=== PATIENT | male | born 1970 | race Caucasian/White ===

== ENCOUNTER 2022-04-05 08:50 | Outpatient (CLI) | payer BC, SELFPAY ==
[2022-04-05 12:53] LABS: Chloride* 100 mmol/L (96-114); Sodium* 137 mmol/L (135-149)
[2022-04-05 12:55] LABS: Estimated Glomerular Filt Rate 91 ml/min
[2022-04-05 12:56] LABS: Blood Urea Nitrogen* 17 mg/dL (7-30); Calcium* 9.1 mg/dL (8.4-10.6); Carbon Dioxide* 26 mmol/L (20-32)
[2022-04-05 13:18] LABS: Glucose* 392 mg/dL (60-115)
== END 2022-04-05 08:51 | disposition home or self-care (01) ==
LOC: NFLDREF 08:51
PROVIDERS: Visit Provider Family Medicine
DX: I10 Essential (primary) hypertension (principal)
CPT/HCPCS: 80048

== ENCOUNTER 2022-04-09 08:58 | Emergency (ER) | payer BC, SELFPAY ==
[2022-04-09 09:04] VITALS: BP 185/108; RESP 18; TEMP 36; O2SAT 98
[2022-04-09 09:25] LABS: Appearance Urine Clear (Clear); Bilirubin Urine Negative (Negative); Blood Urine 3+ (Negative); Color Urine Yellow (Yellow); Glucose Urine Negative (Negative); Ketones Urine Negative (Negative); Leukocyte Esterase Urine Negative (Negative); Nitrite Urine Negative (Negative); Protein Urine Negative (Negative); Urobilinogen Urine 0.2 (0.2-1.0); pH Urine 6.5 (5.0-8.5)
[2022-04-09 09:55] LABS: WBC Urine 0-2 (0-5)
[2022-04-09 10:28] VITALS: BP 177/120; RESP 20; O2SAT 95
--- NOTE | 2022-04-09 13:11 | ED.GENADULT ---
HPI - General Adult General Date Seen: 04/09/22 Chief complaint: Urogenital Problems, Male Stated complaint: Blood clots in urine/more than 1 wk Time Seen by Provider: 04/09/22 09:24 Source: patient Mode of arrival: ambulatory Limitations: no limitations History of Present Illness HPI narrative: Patient is a 51-year-old who presents with painless hematuria for a week. He also notes that he was in to see his primary doctor for high blood pressure last week and his blood sugar was elevated in the 400s. He says his primary doctor said that he should come back in a week to recheck it as maybe it was just lab error. He says he has been otherwise feeling fine. He denies any recent unexpected weight loss, night sweats, fevers. He has not had any abdominal or back pain. He notes some clots when he starts his urine stream, has not had any difficulty voiding otherwise. Denies dysuria, frequency or urgency. Denies any history of kidney stones. No prostate problems that he knows of. He says he went to urgent care yesterday but was told he needed to come to the ER. Related Data Previous Rx's Medication Instructions Recorded amlodipine 10 mg tablet 10 mg PO DAILY #90 tabs 04/05/22 lisinopril 20 mg tablet 20 mg PO DAILY #90 tabs 04/05/22 Allergies Allergy/AdvReac Type Severity Reaction Status Date / Time No Known Allergies Allergy Unknown Unknown Verified 04/05/22 07:59 Review of Systems Status of ROS: Reports: 10 or more systems reviewed and unremarkable except as noted in History and below [facility] Medical History History of anxiety History of depression History of malignant melanoma Social History Smoking Status: Never smoker Do you use any of these nicotine containing products: None Second hand tobacco smoke exposure: No How often do you have a drink containing alcohol: monthly or less How many standard drinks containing alcohol do you have on a typical day: 1 or 2 How often do you have six or more drinks on one occasion: Never AUDIT-C Alcohol total score: 1 Non-prescribed substance use: denies use Little interest or pleasure in doing things: several days Feeling down, depressed, or hopeless: several days Exam Narrative: Exam Narrative: Vital signs as noted above. In general, an alert, well-appearing patient. Head: Normocephalic, atraumatic. Eyes: Pupils are equal reactive. Extraocular movements are full. Conjunctivae are normal. ENT: Mucous membranes are moist. Throat is normal. Neck: Supple without lymphadenopathy. Heart: Regular rate and rhythm. No murmur or rub. Lungs: Clear bilaterally. No increased work of breathing, crackles or wheezes. Abdomen: Soft and nontender. No organomegaly. Back no CVA tenderness. Extremities: Well perfused. No edema. No calf tenderness. Pulses intact. Neurologic: Patient is alert and oriented to person and place. Speech is fluent. Face is symmetric. Moves all extremities equally. Affect: Normal. Skin: Warm and dry. Well perfused. Const: Vital Signs, click to edit/add: Vital Signs - 24 hr 04/09/22 09:04 04/09/22 10:28 Temperature 96.8 F L Respiratory Rate 18 20 Blood Pressure [Le ft Upper Arm] 185/108 H 177/120 H Pulse Oximetry 98 95 Oxygen Delivery Me thod Room Air Documenting provider has reviewed patient's vital signs: yes Course Course Hospital Course: We checked a urinalysis here, which is side from 10-25 red cells is negative. He does not have any glucose in his urine. 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 Therefore, I did do a fasting glucose here which is 182. I have discussed this with him, I do think this is diagnostic of diabetes which is likely type 2. He remains hypertensive here. He just started on lisinopril and amlodipine a few days ago. Since he had previously already discussed the possible diagnosis of diabetes with his primary doctor, I have suggested that he call his clinic today and see with a plan to start him on for his diabetes rather than me choosing a medicine here. I have stressed to him that I do think he needs to be on medication for diabetes right away. His blood pressure will also need to be followed, but given he just started medication for that I think that can be followed up with primary care. With respect to his hematuria, I have discussed with him that I would rather have a follow-up with Urology and have that worked up. While we could do imaging in the form of CT scan, I am not certain that that would be the 1st test that Urology would choose, and rather than expose him to Radiology which he may or may not need I would recommend that we have him see Urology 1st. He is comfortable with that. I gave him the phone numbers that he can call make a follow-up appointment with them. Stressed that he does need to follow up with them, even if hematuria were to resolve. If at any time he develops severe hematuria, inability to void, severe abdominal or back pain, return to the emergency department for re-evaluation. Vital Signs Vital signs: Initial Vital Signs Temperature 96.8 F L 04/09/22 09:04 Temperature Source Temporal Artery Scan 04/09/22 09:04 Respiratory Rate 18 04/09/22 09:04 Blood Pressure 185/108 H 04/09/22 09:04 Blood Pressure Mean 133 04/09/22 09:04 Blood Pressure Position Sitting 04/09/22 09:04 Pulse Oximetry 98 04/09/22 09:04 Oxygen Delivery Method 04/09/22 09:04 Vital Signs Temperature 96.8 F L 04/09/22 09:04 Respiratory Rate 18 04/09/22 09:04 Blood Pressure 185/108 H 04/09/22 09:04 Pulse Oximetry 98 04/09/22 09:04 Oxygen Delivery Method 04/09/22 09:04 Temperature 96.8 F L 04/09/22 09:04 Respiratory Rate 20 04/09/22 10:28 Blood Pressure 177/120 H 04/09/22 10:28 Pulse Oximetry 95 04/09/22 10:28 Oxygen Delivery Method 04/09/22 09:04 Medical Decision Making Lab Data Labs: Lab Results 04/09/22 Range/Units 09:00 Urine Color Yellow (Yellow) Urine Appearance Clear (Clear) Urine pH 6.5 (5.0-8.5) Ur Specific [place] 1.010 (1.000-1.030) Urine Protein Negative (Negative) Urine Glucose (UA) Negative (Negative) Urine Ketones Negative (Negative) Urine Blood 3+ A (Negative) Urine Nitrite Negative (Negative) Urine Bilirubin Negative (Negative) Urine Urobilinogen 0.2 (0.2-1.0) Ur Leukocyte Esterase Negative (Negative) Urine RBC 10-25 A (0-2) Urine WBC 0-2 (0-5) Ur Squamous Epith Cells None (None-Few) Urine Bacteria None (None) Discharge Plan Discharge Clinical Impression: Diabetes, Painless hematuria Patient Disposition: Home, Self-Care Condition: Stable Instructions: Type 2 Diabetes in Adults: New Diagnosis (DC), Hematuria (ED) Additional Instructions: Your fasting blood sugar today is 182, above the threshold for diabetes. Since you have already begun this discussion with your primary doctor, I would recommend that you call your clinic today, to ask of medication they would like to start, and to arrange follow-up. With regard to the blood in your urine, I would like to have you follow-up with Urology to look into that further. Please call [facility] at [phone] to arrange a follow-up appointment. If any time you have significant blood in the urine, pain with urination, inability to urinate, severe abdominal or back pain, return to the emergency department. Prescriptions: No Action amlodipine 10 mg tablet 10 mg PO DAILY Qty: 90 1RF lisinopril 20 mg tablet 20 mg PO DAILY Qty: 90 1RF Follow Up/Referrals: Bryce Ashley MD [Primary Care Provider] - Stand Alone Forms: [employer] Info Instructions
== END 2022-04-09 10:34 | disposition home or self-care (01) ==
PROVIDERS: Emergency Provider Emergency Medicine; PCP Family Medicine
DX: R31.9 Hematuria, unspecified (principal); E11.9 Type 2 diabetes mellitus without complications
CPT/HCPCS: 81001; 81015; 82962; 87086; 99283; 99284

== ENCOUNTER 2022-09-10 07:30 | Outpatient (CLI) | payer BC, SELFPAY | END 2022-09-10 07:31 | disposition home or self-care (01) | LOC: NFLDREF 12:16 | PROVIDERS: PCP Family Medicine; Referring Provider Family Medicine; Visit Provider Family Medicine | DX: Z00.00 Encounter for general adult medical examination without abnormal findings (principal); E78.5 Hyperlipidemia, unspecified; I10 Essential (primary) hypertension; E66.3 Overweight; R79.89 Other specified abnormal findings of blood chemistry; E11.9 Type 2 diabetes mellitus without complications | CPT/HCPCS: 80053; 80061 ==

== ENCOUNTER 2022-10-15 07:56 | Outpatient (CLI) | payer BC, SELFPAY ==
--- NOTE | 2022-10-15 07:24 | P.ANHP_ITS ---
HPI - Pre-Anesthesia History of Present Illness Time Seen by Provider: 08:20 Date Seen: 10/15/22 Date of service: 10/15/22 Reason for visit: screening colonoscopy Source: patient and old records reviewed Narrative HPI: here for screening colonoscopy Review of Systems Status of ROS Reports: 6 or more systems reviewed and unremarkable except as noted in History and below [facility] Medical History History of anxiety History of depression History of malignant melanoma Social History (Updated 09/12/22 @ 11:15 by Carlota Melissa ~ [facility]) What is your current living situation?: I presently have a place to live Problems where you live: no known problems In the past 12 months, utilities in danger of being shut off: no In the past 12 mos, have been you worried that your food would run out before you had money to buy more?: never true In the past 12 mos, the food you bought just didn't last and you didn't have money to buy more?: never true Smoking Status: Never smoker Do you use any of these nicotine containing products: None Second hand tobacco smoke exposure: No How often do you have a drink containing alcohol: monthly or less How many standard drinks containing alcohol do you have on a typical day: 1 or 2 How often do you have six or more drinks on one occasion: Never AUDIT-C Alcohol total score: 1 Non-prescribed substance use: denies use How often does anyone, including family, friends and others, physically hurt you : How often does anyone, including family, friends and others, insult or talk down to you: How often does anyone, including family, friends and others, threaten you with harm: How often does anyone, including family, friends and others, scream or curse at you: Little interest or pleasure in doing things: not at all Feeling down, depressed, or hopeless: not at all Meds Home Medications and Allergies Allergies Allergy/AdvReac Type Severity Reaction Status Date / Time No Known Allergies Allergy Unknown Unknown Verified 10/10/22 10:13 Exam Const Documenting provider has reviewed patient's vital signs: yes Common normals: no apparent distress, oriented x3, healthy appearing, alert and well nourished General appearance: cooperative and comfortable Orientation/consciousness: Yes awake HENMT Common normals: normocephalic Head and scalp: normocephalic Neck & C-Spine Common normals: full ROM Chest Chest: symmetrical chest wall rise Resp Common normals: normal respiratory effort, no retractions, no use of accessory muscles and clear to auscultation bilaterally Auscultation: clear to auscultation bilaterally Cardio Common normals: regular rate, regular rhythm, S1 normal heart sound, S2 normal heart sound and no murmurs Rate: regular rate Rhythm: regular rhythm Heart sounds: S1 normal and S2 normal Neuro Common normals: oriented x3 Sensorium/orientation: awake and alert Assessment and Plan Assessment and plan (1) Screen for colon cancer: Status: Acute Plan ok to proceed with sedation
--- NOTE | 2022-10-15 07:24 | W.ANESCHARGE ---
Anesthesia Charges Start Date/Time Anesthesia Start Date: 10/15/22 Anesthesia Start Time: 09:06 Stop Date/Time Anesthesia Stop Date: 10/15/22 Anesthesia Stop Time: 10:05
--- NOTE | 2022-10-15 10:06 | W.ANESCHARGE ---
Anesthesia Charges Start Date/Time Anesthesia Start Date: 10/15/22 Anesthesia Start Time: 09:06 Stop Date/Time Anesthesia Stop Date: 10/15/22 Anesthesia Stop Time: 10:05
== END 2022-10-15 07:57 | disposition home or self-care (01) ==
PROVIDERS: PCP Family Medicine; Visit Provider Surgery
DX: Z12.11 Encounter for screening for malignant neoplasm of colon (principal); K63.5 Polyp of colon; K62.1 Rectal polyp
CPT/HCPCS: 45385; 811; 88305; J2704

== ENCOUNTER 2022-10-19 08:54 | Emergency (ER) | payer OTHER, BC, SELFPAY ==
[2022-10-19 09:05] VITALS: BP 131/89; PULSE 93; RESP 16; TEMP 35.7; O2SAT 96; BMI 30.5
--- NOTE | 2022-10-19 09:47 | ED.GENADULT ---
HPI - General Adult General Chief complaint: Extremity Pain/Injury, Upper Stated complaint: L arm injury Time Seen by Provider: 10/19/22 09:36 Source: patient Mode of arrival: ambulatory Limitations: no limitations History of Present Illness HPI narrative: 52-year-old male coming in today with arm pain. He states he was lifting up a stage when he fell couple of pops right in his anterior elbow area and felt immediate pain. He has been having pain in the antecubital fossa since and has a hard time flexing the arm. He denies any other injury. Related Data Previous Rx's Medication Instructions Recorded amlodipine 10 mg tablet 10 mg PO DAILY #90 tabs 09/12/22 lisinopril 40 mg tablet 40 mg PO QDAY #90 tabs 09/12/22 peg 3350-electrolytes 236 240 ml PO Q10M #4,000 mL 09/12/22 gram-22.74 gram-6.74 gram-5.86 gram solution (Golytely) rosuvastatin 10 mg tablet 10 mg PO QDAY #90 tabs 09/12/22 Blood Glucose Meter #1 ea 10/10/22 Diabetic Test Strips #100 ea 10/10/22 chlorthalidone 25 mg tablet 12.5 mg (1/2 x 25 mg) PO QDAY #45 10/10/22 tabs lancets 28 gauge (CareTouch Safety #100 ea 10/10/22 Lancets) metformin 500 mg tablet 500 mg PO BIDWMEAL #60 tabs 10/10/22 Allergies Allergy/AdvReac Type Severity Reaction Status Date / Time No Known Allergies Allergy Unknown Unknown Verified 10/10/22 10:13 Review of Systems Status of ROS: Reports: 6 or more systems reviewed and unremarkable except as noted in History and below [facility] Medical History History of malignant melanoma ?Z85.820 - Personal history of malignant melanoma of skin (ICD-10) History of depression ?Z86.59 - Personal history of other mental and behavioral disorders (ICD-10) History of anxiety ?Z86.59 - Personal history of other mental and behavioral disorders (ICD-10) Social History What is your current living situation?: I presently have a place to live Problems where you live: no known problems In the past 12 months, utilities in danger of being shut off: no In the past 12 mos, have been you worried that your food would run out before you had money to buy more?: never true In the past 12 mos, the food you bought just didn't last and you didn't have money to buy more?: never true Smoking Status: Never smoker Do you use any of these nicotine containing products: None Second hand tobacco smoke exposure: No How often do you have a drink containing alcohol: monthly or less How many standard drinks containing alcohol do you have on a typical day: 1 or 2 How often do you have six or more drinks on one occasion: Never AUDIT-C Alcohol total score: 1 Non-prescribed substance use: denies use How often does anyone, including family, friends and others, physically hurt you: How often does anyone, including family, friends and others, insult or talk down to you: How often does anyone, including family, friends and others, threaten you with harm: How often does anyone, including family, friends and others, scream or curse at you: Little interest or pleasure in doing things: not at all Feeling down, depressed, or hopeless: not at all Exam Narrative: Exam Narrative: Overweight, well-developed patient in no acute distress. Alert and oriented. Answers questions appropriately. Mood and affect are appropriate. Thoughts are goal oriented and rational. No tangential or magical thinking noted. Patient speaks in full sentences without needing to catch their breath. HEENT: Normocephalic atraumatic. Pupils are equally round reactive to light. Extraocular muscles are intact. Conjunctivae are moist without any icterus noted. Moist mucous membranes. Extremities: Left arm has tenderness to palpation in the antecubital fossa. He has, when compared to the right arm, a slightly sunken area just proximal to the antecubital fossa. He has somewhat of a reverse pop by present. He has increased pain with resisted elbow flexion. And he has an abnormal biceps squeeze test. Skin: Well perfused without any obvious rashes. Const: Vital Signs, click to edit/add: Vital Signs - 24 hr 10/19/22 09:05 Temperature 96.2 F L Pulse Rate [Right Pulse Oximeter] 93 Respiratory Rate 16 Blood Pressure [Ri ght Upper Arm] 131/89 Pulse Oximetry 96 Oxygen Delivery Me thod Room Air Course Course Hospital Course: I consulted with Orthopedics who recommended a sling, pain management and follow-up orthopedic appointment in 7-10 days for probable surgical management. Vital Signs Vital signs: Initial Vital Signs Temperature 96.2 F L 10/19/22 09:05 Temperature Source Temporal Artery Scan 10/19/22 09:05 Pulse Rate 93 10/19/22 09:05 Respiratory Rate 16 10/19/22 09:05 Blood Pressure 131/89 10/19/22 09:05 Blood Pressure Mean 103 10/19/22 09:05 Blood Pressure Position Sitting 10/19/22 09:05 Pulse Oximetry 96 10/19/22 09:05 Oxygen Delivery Method Room Air 10/19/22 09:05 Vital Signs Temperature 96.2 F L 10/19/22 09:05 Pulse Rate 93 10/19/22 09:05 Respiratory Rate 16 10/19/22 09:05 Blood Pressure 131/89 10/19/22 09:05 Pulse Oximetry 96 10/19/22 09:05 Oxygen Delivery Method Room Air 10/19/22 09:05 Temperature 96.2 F L 10/19/22 09:05 Pulse Rate 93 10/19/22 09:05 Respiratory Rate 16 10/19/22 09:05 Blood Pressure 131/89 10/19/22 09:05 Pulse Oximetry 96 10/19/22 09:05 Oxygen Delivery Method Room Air 10/19/22 09:05 Medical Decision Making MDM Narrative Medical decision making narrative: 52-year-old male with a probable distal bicep tendon rupture. Patient will be placed in a sling, given pain medication and referred orthopedics. Discharge Plan Discharge Clinical Impression: Rupture of distal biceps tendon Patient Disposition: Home, Self-Care Condition: Stable Additional Instructions: Wear sling at all times. Use pain medication as needed. Follow-up with orthopedics as scheduled. Pain medications sent to [facility] Prescriptions: No Action lisinopril 40 mg tablet 40 mg PO QDAY Qty: 90 3RF amlodipine 10 mg tablet 10 mg PO DAILY Qty: 90 3RF peg 3350-electrolytes [Golytely] 236-22.74-6.74 -5.86 gram recon soln 240 ml PO Q10M Qty: 4000 0RF Rx Instructions: until fecal effluent is clear rosuvastatin 10 mg tablet 10 mg PO QDAY Qty: 90 3RF metformin 500 mg tablet 500 mg PO BIDWMEAL Qty: 60 1RF (DME) Blood Glucose Meter Misc See Rx Instructions .ROUTE .MEDSUPPLY Qty: 1 0RF Rx Instructions: As directed (DME) Diabetic Test Strips Misc See Rx Instructions .ROUTE .MEDSUPPLY Qty: 100 3RF Rx Instructions: bid prn (DME) lancets [CareTouch Safety Lancets] 28 gauge misc See Rx Instructions .ROUTE .MEDSUPPLY Qty: 100 3RF Rx Instructions: As directed chlorthalidone 25 mg tablet 12.5 mg PO QDAY Qty: 45 3RF Follow Up/Referrals: Bryce Ashley MD [Primary Care Provider] - Stand Alone Forms: [employer] Info Instructions
== END 2022-10-19 11:12 | disposition home or self-care (01) ==
PROVIDERS: Emergency Provider Family Medicine; PCP Family Medicine
DX: S46.212A Strain of muscle, fascia and tendon of other parts of biceps, left arm, initial encounter (principal)
CPT/HCPCS: 99283; 99284

== ENCOUNTER 2022-10-30 15:51 | Outpatient (CLI) | payer OTHER, BC, SELFPAY | END 2022-10-30 15:52 | disposition home or self-care (01) | LOC: NFLDREF 15:51 | PROVIDERS: PCP Family Medicine; Visit Provider Family Medicine | DX: I10 Essential (primary) hypertension (principal); E11.9 Type 2 diabetes mellitus without complications; R73.9 Hyperglycemia, unspecified | CPT/HCPCS: 80048 ==

== ENCOUNTER 2022-10-31 14:12 | Outpatient (CLI) | payer OTHER, BC, SELFPAY ==
--- NOTE | 2022-10-31 14:30 | MR_ITS ---
[address] [address] Phone:?[phone] Fax:?[phone] Referring Physician Information: José De La Cruz M.D. [address] [facility] [address] Phone:?[phone] Fax:?[phone] Patient:Domenica Cravalho D.O.B:?1970 Sex:?Male Phone:?[phone] [facility] MRN:?[id number] Exam Date:?10/31/2022 EXAM: MRI OF THE LEFT ELBOW, WITHOUT CONTRAST CLINICAL: Evaluate for biceps tendon rupture. COMPARISONS: X-rays dated 10/30/2022. TECHNICAL: Multiplanar multisequence MRI of the left elbow was obtained. SEDATION: None. CONTRAST: None. FINDINGS: Elbow joint: Effusion: Physiologic. Radiohumeral plica: No pathologic thickening or enlargement. Osteochondral surfaces: No osteochondral abnormality. Bones: No suspicious marrow signal alteration, fracture line, subluxation or dislocation. Myotendinous structures: Biceps: There is complete full-thickness rupture of the distal biceps tendon from the radial attachment site with proximal retraction of torn tendon fibers by approximately 4 cm. Associated mild fluid about the torn and retracted tendon fibers. Brachialis: No strain/tear. Triceps: Intact posterior tendinous and anterior muscular insertions. No significant tendinosis. Forearm extensors: There is high-grade partial tearing involving the common extensor tendon at the lateral humeral epicondyle attachment as seen on coronal series 4 images 7-9. Forearm flexors: Common flexor tendon appears unremarkable. Ligaments: Medial ulnar collateral: No sprain or disruption. Radial collateral proper: Normal. Lateral ulnar collateral: Normal. Nerves: Ulnar: Normal, without appreciable edema, thickening or mass. Median: Normal. Radial: Normal. IMPRESSION: 1. Complete full-thickness rupture of the distal biceps tendon from the radial attachment site with proximal retraction of torn tendon fibers by approximately 4 cm. 2. High-grade partial tearing involving the common extensor tendon at the lateral humeral epicondyle attachment. 3. No additional internal derangement identified. JCZ Electronically signed on 10/31/2022 8:06:00 PM by Maury Marroquin D.O.
== END 2022-10-31 14:13 | disposition home or self-care (01) ==
LOC: MRI 14:12
PROVIDERS: PCP Family Medicine; Visit Provider Orthopaedic Surgery Sports Medicine
DX: M25.522 Pain in left elbow (principal); S46.212A Strain of muscle, fascia and tendon of other parts of biceps, left arm, initial encounter
CPT/HCPCS: 73221

== ENCOUNTER 2022-11-05 09:26 | Day surgery (SDC) | payer OTHER, BC, SELFPAY ==
[2022-11-05] VITALS (7 sets, daily range): BP systolic 156–176; BP diastolic 96–114; PULSE 74–88; RESP 16–20; TEMP 36.3–36.5; O2SAT 94–99; BMI 29.9
[2022-11-05] MEDS: LACTATED RINGERS 1000 ML 1,000 ML 100 ML IV (09:35)
[2022-11-05] MEDS: SODIUM CHLORIDE 0.9 % (FLUSH) 10 ML SYRINGE IVF (10:02)
[2022-11-05] MEDS: fentaNYL 100 MCG/2 ML inj IVP (10:51)
[2022-11-05] MEDS: MIDAZOLAM HCL 1 MG/ML inj IVP (10:51)
--- NOTE | 2022-11-05 10:58 | W.PM.NB ---
Nerve Block Nerve Block Time Seen by Provider: 10:56 Date Seen: 11/05/22 Type of block requested by surgeon for post-operative analgesia: axillary Side: left Time out performed: Yes Verification of patient name: Yes Verification of date of : Yes Site marking: site marked Name of person performing procedure: William Continuous monitoring Was continuous monitoring of O2 sat, B/P, cardiac nurse specialist, recorded every 15 minutes?: Yes Procedure Checklist: sterile prep, needles and gloves Ultrasound guided. Images saved: Yes Medications given in 5ml increments after negative aspiration: Ropivicaine %: 0.5 mL: 30 Needle gauge: 22 Decadron (mg): 10 Precedex (mcg): 25 Patient tolerated procedure well: Yes Additional comments: Needle noted adjacent to nerve Block Charges Block Charge (with Pro Fee): Brachial Plexus Use of Ultrasound Machine for Block: Yes- US Guidance/pain block
--- NOTE | 2022-11-05 10:58 | SUR.PREOP ---
TIME?OUT:?1050 PT/RN/MDA?VERIFICATION?OF?SURGICAL?SITE Left Arm,?PROCEDURE Axe Block,?AND?CONSENT OBTAINED?PRIOR?TO?INVASIVE?PROCEDURE.
--- NOTE | 2022-11-05 10:58 | W.ANESCHARGE ---
Anesthesia Charges Start Date/Time Anesthesia Start Date: 11/05/22 Anesthesia Start Time: 11:32 Stop Date/Time Anesthesia Stop Date: 11/05/22 Anesthesia Stop Time: 14:05
--- NOTE | 2022-11-05 11:18 | CRLHL7_ITS ---
For Patients: As a result of the Cures Act, medical imaging exams and procedure reports are released immediately into your electronic medical record. You may view this report before your referring provider. If you have questions, please contact your health care provider. INDICATION: Distal biceps repair TECHNIQUE: Fluoroscopy 2.9 seconds was provided with no radiologist in attendance. COMPARISON: None FINDINGS: Single fluoroscopic lateral view shows a metallic suture button overlying the proximal radius and ulna. No side marker is present on the submitted image. Dictated by Antoni Henley MD @ 11/05/2022 5:43:48 PM Dictated by: Antoni Henley MD @ 11/05/2022 17:44:14 (Electronically Signed)
[2022-11-05] MEDS: CEFAZOLIN 2 GM in 0.9 % SODIUM CHLORIDE Mini-bag 100 ML IVPB (11:39)
--- NOTE | 2022-11-05 13:27 | P.ORPRC_ITS ---
Procedure Note Date of procedure: 11/05/22 Procedure: PREOPERATIVE DIAGNOSIS: 1. Left distal biceps rupture, subacute POSTOPERATIVE DIAGNOSIS: 1. Left distal biceps rupture, subacute PROCEDURE: 1. Left open distal biceps repair 2. 28739 - intraoperative fluoroscopy up to 1 hour. SURGEON: José De La Cruz MD GAME TRAPPER: Stef Nunez PA-C (Of note, use of an inventory assistant was critical for this case to aid in patient positioning, tissue retraction, nerve protection, arm positioning, suture management, and closure as well as splint application.) ANESTHESIA: Supraclavicular block plus MAC EBL: 25 mL TOURNIQUET: 77 minutes at 250 torr IMPLANTS: Arthrex tension slide distal Biceps Button with Peek interference screw 7 x 10mm. COMPLICATIONS: None evident INDICATIONS FOR PROCEDURE: The patient is a pleasant 52-year-old male. They sustained an injury to the left distal biceps roughly 2 weeks ago. Upon evaluation, they were found to have a positive hook sign as well as positive MRI showing for cm retraction of the distal stump. Given the patient's use of this extremity, recommendation was made for surgery. DESCRIPTION OF PROCEDURE: Following a thorough discussion of the risks, benefits and alternatives, consent was obtained and the left forearm was marked. The patient was brought to the operating room, placed supine on the operating table. Induction of general anesthesia was undertaken after a supraclavicular block was administered in the preop holding. Appropriate time out was performed to identify proper patient, site and procedure. The operative upper extremity was prepped and draped in the appropriate sterile fashion using ChloraPrep prep. The limb was exsanguinated and the tourniquet inflated to 250 Torr after 2 g IV Ancef was administered within 1 hour of incision preoperatively. A transverse incision was made in line with the antecubital fossa crease approximately 4 cm distal to the crease itself. Sharp incision through the skin and blunt dissection through the subcutaneous tissue allowed protection of crossing neurologic and vascular structures. Blunt dissection was taken deep for identification of the radial tuberosity. Additionally, the lateral antebrachial cutaneous nerve was identified and protected throughout the case. We then turned our attention to retrieving the biceps stump. The stump was retracted approximately 4-5 cm. The stump was assessed, and found to have [good integrity. It was whipstitched utilizing a #2 FiberLoop suture to get a strong hold on the tendon. The tendon diameter was measured and found to be a diamter of 7mm. We brought the tendon back down through the typical deeper planes and deep to crossing vascularity to eventually reattach to the bicipital tuberosity. The insertion site was then prepared using a Joker elevator and rongeur. A guide pin was utilized bicortical, and an 8 mm reamer was then used unicortically after confirming on C-arm fluoroscopic imaging to be in appropriate position at the radial tuberosity. The suture tails were then passed through the tension slide button and the button passed through the bicortical tunnel, and flipped. It was confirmed on C-arm fluoroscopic imaging to be in the proper position and flipped completely and apposed against bone. We then utilized this tension slide manner to reapproximate the tendon to the reamed hole. Once the tendon was dunked, with the elbow flexed to roughly 90 degrees, we passed one of the limbs of the suture through the tendon and tied it with a knot pusher with 6 alternating half hitches with post switching to secure it and prevent it from sliding off the tension slide button. We then utilized the interference screw as a secondary mechanism to secure the tendon.. The tourniquet was deflated and hemostasis achieved. A thorough irrigation with normal saline was then performed followed by closure with 2-0 Vicryl and 4-0 Monocryl in subcutaneous and subcuticular layers. Dressings were applied. Posterior splint was applied. Patient awoke from anesthesia and was transferred to the Post-Anesthesia Care Unit in stable condition. PLAN: 1. Ice and elevate operative upper extremity. 2. Finger range of motion as tolerated. 3. Follow up with PA visit in 10 days. Wound check. Active range of motion operative elbow and forearm as tolerted. lift nothing more than a coffee cup x 8 weeks. 4. Ibuprofen, Tylenol, and/or Percocet for pain as needed.
== END 2022-11-05 14:50 | disposition home or self-care (01) ==
PROVIDERS: PCP Family Medicine; Visit Provider Orthopaedic Surgery Sports Medicine
PROC: (CPT 24341; principal; 2022-11-05 11:00)
DX: S46.212A Strain of muscle, fascia and tendon of other parts of biceps, left arm, initial encounter (principal); G89.18 Other acute postprocedural pain
CPT/HCPCS: 24341; 01716; 64415; 73070; 76942; 82962; A4580; C1713; J0690; J1100; J2250; J2371; J2704; J2795; J3010; J7120

== ENCOUNTER 2023-02-28 15:15 | Outpatient (RCR) | payer OTHER, BC, SELFPAY | END 2023-02-28 16:58 | disposition home or self-care (01) | PROVIDERS: PCP Family Medicine; Visit Provider Orthopaedic Surgery Sports Medicine | DX: Z02.6 Encounter for examination for insurance purposes (principal); M79.629 Pain in unspecified upper arm; M62.81 Muscle weakness (generalized); Z98.890 Other specified postprocedural states; Z51.89 Encounter for other specified aftercare | CPT/HCPCS: 97110; 97140; 97161; 97535 ==

== ENCOUNTER 2023-04-25 07:47 | Outpatient (CLI) | payer OTHER, BC, SELFPAY ==
--- OUTSIDE RECORDS SUMMARY | 2023-04-26 07:35 | XMS_ITS | Clinical Summary ---
Author Name Unknown Organization [facility] Address [place], [place] [address] Care Team Providers Care Purse Seiner Name Role Phone Janeen Carlin RN Unavailable [phone] Eder Ashley DO Primary Care Provid er Allergies No known active allergies Medications Medication Sig Dispensed Refills Start Date End Date Status AMLODIPINE BESYLATE (AMLODIPINE ORAL) Take 1 Tab by mouth once daily. 0 Active HYDROcodone-acetami nophen, 5-325 mg, (NORCO) per tabletIndications:M ass of subcutaneous tissue of back Take 1-2 tablets by mouth every 4 hours if needed for Pain Max acetaminophen dose: 4000 mg in 24 hrs. 10 tablet 0 05/01/2017 Active Active Problems Problem Noted Date Diagnosed Date Mass of subcutaneous tissue of back 05/01/2017 Melanoma of back 04/06/2016 Social History Tobacco Use Types Packs/Day Years Used Date Smoking Tobacco: Never Tobacco Cessation:Counseling Given: Yes Alcohol Use Standard Drinks/Week Comments Not Asked 0 (1 standard drink = 0.6 oz pur e alcohol) Sex and Gender Information Value Date Recorded Sex Assigned at Not on file Gender Identity Not on file Sexual Orientation Not on file Obstetrics History Last Filed Vital Signs Vital Sign Reading Time Taken Comments Blood Pressure 127/84 05/01/2017 1:23 PM HISTORIC PRESERVATIONIST Pulse 89 05/01/2017 1:23 PM HISTORIC PRESERVATIONIST Temperature 37.2 ??C (98.9 ??F) 05/01/2017 12:[address] Respiratory Rate 16 05/01/2017 12:10 PM HISTORIC PRESERVATIONIST Oxygen Saturation 98% 05/01/2017 1:23 PM HISTORIC PRESERVATIONIST Inhaled Oxygen Concentration - - Weight 97.1 kg (214 lb) 05/01/2017 12:10 PM HISTORIC PRESERVATIONIST Height 181.6 cm (5' 11.5) 05/01/2017 12:[address] Body Mass Index 29.43 05/01/2017 12:10 PM HISTORIC PRESERVATIONIST Plan of Treatment Health Maintenance Due Date Last Done Comments COVID-19 vaccine series (#1) 1970 Tdap 1981 Depression screening for age 12+ 1982 HIV for age 15-65 1985 Hepatitis C screening for ag e 18-79 1988 Tetanus booster 1990 Colonoscopy through age 75 2015 Lipids for age 45-75 2015 BMI (ht and wt on same day) for age 18+ 07/23/2017 07/23/2016, 04/30/2016 Zoster (shingles) series for age 50+ (1 of 2) 2020 Influenza for age 50-64 11/23/2022 Pneumococcal series for age 6-64 Aged Out No longer eligible b ased on patient's age to complete this topic Advance Directives Latest Code Status on File Code Status Date Activated Date Inactivated Comments Full Code 04/06/2016 1:42 PM 04/07/2016 2:28 AM Care Teams Purse Seiner Relationship Specialty Start Date End Date Eder Ashley DO [id number] [place] [id number] PCP - General Family Practice 04/29/17 Janeen Carlin RN Cancer Nurse Coordinator Registered Nurse 04/13/16
== END 2023-04-25 07:48 | disposition home or self-care (01) ==
PROVIDERS: PCP Family Medicine; Referring Provider Family Medicine; Visit Provider Family Medicine
DX: E11.9 Type 2 diabetes mellitus without complications (principal); E78.5 Hyperlipidemia, unspecified; I10 Essential (primary) hypertension
CPT/HCPCS: 80053; 80061; 82043; 82570

== ENCOUNTER 2024-06-17 07:28 | Outpatient (CLI) | payer BC, SELFPAY | END 2024-06-17 07:29 | disposition home or self-care (01) | PROVIDERS: PCP Family Medicine; Referring Provider Family Medicine; Visit Provider Family Medicine | DX: E11.9 Type 2 diabetes mellitus without complications (principal); E78.5 Hyperlipidemia, unspecified; I10 Essential (primary) hypertension; R73.9 Hyperglycemia, unspecified; E66.3 Overweight; R79.89 Other specified abnormal findings of blood chemistry | CPT/HCPCS: 80053; 80061; 82043; 82570 ==

== ENCOUNTER 2024-08-25 07:30 | Outpatient (CLI) | payer BC, SELFPAY | END 2024-08-25 07:31 | disposition home or self-care (01) | LOC: NFLDREF 08-27 08:57 | PROVIDERS: PCP Family Medicine; Referring Provider Family Medicine; Visit Provider Family Medicine | DX: I10 Essential (primary) hypertension (principal); E11.9 Type 2 diabetes mellitus without complications | CPT/HCPCS: 80048 ==